=== PATIENT | female | born 1990 | race Asian ===

== ENCOUNTER 2023-11-10 12:34 | Emergency (ER) | payer MEDICAID ==
[~2023-11-10] VITALS: Ht 157.5 cm; Wt 45.4 kg
[2023-11-10 12:54] VITALS: TEMP 97.9
--- NOTE | 2023-11-10 13:51 | NUR ---
patient came back from ct
--- NOTE | 2023-11-10 14:07 | NUR ---
[employer] CALLED, SPOKE WITH DOOR MAKER [phone] AND SAID THAT HE WILL SEND AN OFFICER TO TAKE REPORT.
--- NOTE | 2023-11-10 15:51 | NUR ---
[employer] Officer Santos [phone] here to see pt
[2023-11-10 17:30] VITALS: BP 125/78; O2SAT 96
== END 2023-11-10 17:32 | disposition home or self-care (01) ==
LOC: ER 12:34
DX: S00.11XA Contusion of right eyelid and periocular area, initial encounter (principal); S10.83XA Contusion of other specified part of neck, initial encounter; F19.10 Other psychoactive substance abuse, uncomplicated; F17.200 Nicotine dependence, unspecified, uncomplicated; F12.10 Cannabis abuse, uncomplicated; Z60.2 Problems related to living alone; Y04.8XXA Assault by other bodily force, initial encounter; Y93.89 Activity, other specified; Y92.89 Other specified places as the place of occurrence of the external cause; Y99.8 Other external cause status
CPT/HCPCS: 70486-TC; 72125-TC